=== PATIENT | female | born 1985 | race Caucasian/White ===

== ENCOUNTER → 2018-02-08 | Outpatient (CLI) | payer OTHER | END | disposition home or self-care (01) | LOC: CFH 16:21 | PROVIDERS: ATTEND Family Medicine | DX: E04.1 Nontoxic single thyroid nodule (principal); E05.90 Thyrotoxicosis, unspecified without thyrotoxic crisis or storm | CPT/HCPCS: 76536 ==

== ENCOUNTER 2018-11-16 17:22 | Emergency (ER) | payer BC, OTHER ==
[~2018-11-16] VITALS: Ht 167.6 cm; Wt 65.0 kg
[2018-11-16 17:24] VITALS: BP 139/68
--- NOTE | 2018-11-16 17:32 | NUR ---
CONTACT WITH PT, 33 YR OLD FEMALE HERE WITH C/O PELVIC CRAMPING WITH AMB. VB FOR APPROX 2 HOURS FROM 1:30-3:30. PT 1. PT UPDATED ON POC. PTS AT BEDSIDE. NO NEEDS EXPRESSED AT THIS TIME.
--- NOTE | 2018-11-16 17:43 | NUR ---
PT TO U/S VIA W/C
--- NOTE | 2018-11-16 18:16 | NUR ---
PT RETURN TO ROOM.
--- NOTE | 2018-11-16 18:37 | NUR ---
PT DC'D BY . NO IV TO YOSHI.
== END 2018-11-16 18:39 | disposition home or self-care (01) ==
LOC: ED 18:30
DX: O20.0 Threatened abortion (principal)
CPT/HCPCS: 76801; 99284

== ENCOUNTER → 2020-12-16 | Outpatient (CLI) | payer OTHER ==
[2020-12-16 15:08] LABS: FREE T4 (FREE THYROXINE) 1.19 ng/dL (0.76-1.46)
== END | disposition home or self-care (01) ==
LOC: LAB 14:23
PROVIDERS: ATTEND Family Medicine
DX: Z13.29 Encounter for screening for other suspected endocrine disorder (principal); E03.9 Hypothyroidism, unspecified; E34.9 Endocrine disorder, unspecified; E88.1 Lipodystrophy, not elsewhere classified
CPT/HCPCS: 36415; 82306; 83001; 83002; 83036; 84146; 84439; 84443; 84481